=== PATIENT | male | born 1970 ===

== ENCOUNTER 2019-03-04 11:07 | Inpatient (IN) | payer OTHER ==
[~2019-03-04] VITALS: Ht 188 cm; Wt 113.4 kg
[2019-03-04 11:35] LABS: Calcium, Ionized (POC) 1.08 mmol/L (1.10-1.46); Chloride (POC) 99 mmol/L (98-108); Creatinine (POC) 0.7 mg/dL (0.6-1.0); Glucose (ISTAT POC) 298 mg/dL (70-99); Hemoglobin (POC) 17.7 g/dL (12.0-16.0); Potassium (POC) 3.9 mmol/L (3.5-5.5); Sodium (POC) 133 mmol/L (135-148); Total CO2 (POC) 22 mmol/L (21-32)
[2019-03-04 11:47] LABS: Hematocrit 48.9 % (33.0-51.0); Hemoglobin 17.6 g/dL (11.5-16.0); Mean Corpuscular HGB 32.1 pg (26.0-34.0); Mean Corpuscular Volume 89 fL (80-100); Mean Platelet Volume 10.9 fL (9.1-12.4); Platelet Count 196 K/mm3 (150-400); RDW Coefficient Variation 11.9 % (11.7-14.2); RDW Standard Deviation 38.5 fL (35.1-46.3); Red Blood Cell Count 5.48 M/mm3 (3.80-5.20); White Blood Cell Count 17.14 K/mm3 (4.00-11.30)
[2019-03-04 12:04] LABS: International Normalized Ratio 0.97; Prothrombin Time Results 10.3 Sec (9.7-11.5)
[2019-03-04 12:15] LABS: Alanine Aminotransfer (ALT/SGP 65 U/L (12-78); Albumin, Blood 4.2 g/dL (3.4-5.0); Alk Phos 123 U/L (50-136); Anion Gap 8 mmol/L (6-16); Aspartate Aminotrans (AST/SGOT 259 U/L (12-37); Bilirubin, Total 0.9 mg/dL (0.1-1.0); Blood Urea Nitrogen 10 mg/dL (8-24); Bun/Creatinine Ratio 14.1 (12.0-20.0); CO2, Blood 23 mmol/L (21-32); Calcium, Blood 9.2 mg/dL (8.5-10.1); Chloride, Blood 101 mmol/L (98-108); Cholesterol 245 mg/dL (50-200); Creatinine, Blood 0.71 mg/dL (0.40-1.00); Glomerular Filtration Rate >60 (60-); Glucose, Blood 293 mg/dL (70-99); HDL Cholesterol 41 mg/dL (>39); LDL/HDL RATIO 4.3; Low Density Lipoprotein Chol 175 mg/dL (0-110); Potassium, Blood 3.8 mmol/L (3.5-5.5); Sodium, Blood 132 mmol/L (136-145); Total Protein, Blood 8.2 g/dL (6.4-8.2); Triglycerides 147 mg/dL (30-160); Very Low Density Lipoprot Chol 29 mg/dL (6-32)
--- NOTE | 2019-03-04 12:45 | NUR ---
ARRIVAL NOTE: PT ARRIVED FROM THE [facility] POST ANGIOGRAM VIA BED. PT IS A+O X3. PLEASANT AND COOPERATIVE WITH CARE. SPEECH IS CLEAR, ANSWERS QUESTIONS APPROPRIATELY. DENIES ANY PAIN/NAUSEA AT THIS TIME. MOVES SELF IN BED AND EDUCATION HAS BEEN GIVEN ON ACTIVITY RESTRICTIONS R/T TR BAND. LUNGS ARE CLEAR T/O BILATERALLY. 02 SATS >90% ON RA. HR REGULAR, SR 80-90'S RANGE. AGGRASTAT GTT PER ORDERS. TR BAND IN PLACE TO RT RADIAL STABLE (NO OOZING/HEMATOMA). WILL MONITOR PER ORDERS. ABD SOFT/ROUND/NON-TENDER. BT'S HYPOACTIVE X4 QAUDS. PT VOIDS PER URINAL. -FULL CODE -RECOVER TR BAND -POSSIBLE DISCHARGE HOME TOMORROW PER DR DOUGLASS
[2019-03-04] MEDS ORDERED: MOTRIN IB200 MG PO (13:15)
--- NOTE | 2019-03-04 16:56 | NUR ---
echocardiogram complete
--- NOTE | 2019-03-04 17:00 | NUR ---
TR BAND REMAINS STABLE. WILL START TO DEFLATE CUFF. WILL DEFLATE SLOWLY, PT REMAINS ON AGGRASTAT GTT PER ORDERS.
--- NOTE | 2019-03-04 19:00 | NUR ---
SHIFT SUMMARY/REPORTED OFF: REPORTED OFF TO YANELY PANDA WHOM WILL ASSUMING CARE OF THIS PT. PT REMAINS STABLE T/O REMAINDER OF SHIFT. NO CHANGE IN ASSESSMENT FROM PRIOR DOCUMENTED. CONTINUES TO DENY CP/NAUSEA. VS STABLE. TR BAND ALMOST FULLY DEFLATED (APPROX 2ML LEFT OF AIR), SITE REMAINS STABLE (NO OOZING/HEMATOMA). PT WILL PROBABLE DISCHARGE HOME TOMORROW PER DR DOUGLASS.
--- NOTE | 2019-03-04 19:25 | NUR ---
ASSUMED CARE OF PT, BEDSIDE REPORT RECEIVED. PT IS RESTING QUIETLY RECLINING IN BED, DENIES N/V, DENIES CP/PRESSURE, DENIES SOB/DYSPNEA, STATES THAT HE IS FEELING WELL AND LOOKING FORWARD TO DISCHARGE TO HOME IN AM. LUNGS ARE CLEAR THROUGHOUT, SKIN PWD, SATS HIGH 90S ON ROOM AIR, NO INCREASED WORK OF BREATHING IS NOTED, SPEAKING IN FULL SENTANCES. HRR, SINUS ON MONITOR, PRESSURE AND RATE WNL, PULSES FULL X 4 EXTREMITIES, TR BAND NOTED IN PLACE TO RIGHT WRIST, 2 ML AIR REMOVED AT THIS TIME, PT MAINTAINING MOVEMENT RESTRICTIONS/PRECAUTIONS R/T RADIAL ACCESS SITE WELL AT THIS TIME, SITE REMAINS STABLE AT THIS TIME, WILL CONT TO MONITOR AND DEFLATE. BOWEL TONES ACTIVE X 4, ABD DISTENDED BUT SOFT. WILL CONT TO MONITOR.
--- NOTE | 2019-03-04 20:03 | NUR ---
TR BAND DEFLATED FULLY AT THIS TIME, SITE REMAINS STABLE, WILL CONT TO MONITOR AND REMOVE IN 1 HOUR IF SITE REMAINS STABLE.
--- NOTE | 2019-03-04 21:00 | NUR ---
RIGHT RADIAL ACCESS SITE REMAINS STABLE AT THIS TIME, TR BAND REMOVED, SITE CLEANSED WITH CHLORPREP AND CLEAR OCCLUSIVE DRESSING APPLIED, PT TOLERATED WELL, VERBALIZED UNDERSTANDING OF CONTINUED RADIAL ACCESS SITE PRECAUTIONS. WILL CONT TO MONITOR.
--- NOTE | 2019-03-04 22:00 | NUR ---
RIGHT RADIAL ACCESS SITE CONTINUES STABLE AT THIS TIME, WILL CONT TO MONITOR.
--- NOTE | 2019-03-05 06:18 | NUR ---
PT RESTS QUIETLY THROUGHOUT SHIFT, CONTINUES TO DENY CP/PRESSURE, DENIES SOB/DYSPNEA, DENIES NUMBNESS/TINGLING, DENIES N/V, STATES THAT HE FEELS WELL AND IS HOPEFUL FOR DISCHARGE TO HOME TODAY. LUNGS REMAIN CLEAR THROUGHOUT, MAINTAINS SATS MID 90S ON ROOM AIR, NO INCREASED WORK OF BREATHING IS NOTED, RATE TEENS. HRR, SINUS ON MONITOR, OCCASIONAL PVCS ARE NOTED, PRESSURE MAINTAINING, PULSES REMAIN FULL X 4 EXTREMITIES, SKIN PWD. RIGHT RADIAL ACCESS SITE CONTINUES SOFT, WITHOUT EVIDENCE OF BLEEDING. ABD REMAINS SOFT WITH ACTIVE BOWEL TONES. PT VOIDS CLEAR YELLOW URINE WITHOUT DIFFICULTY. NO ACUTE CHANGES THIS SHIFT.
--- NOTE | 2019-03-05 09:02 | NUR ---
CALLED IN RX'S TO [facility] AT [facility] ([phone]).
[2019-03-05] MEDS ORDERED: ASPI81CH PO (09:09)
[2019-03-05] MEDS ORDERED: ATOR40TA PO (09:10)
[2019-03-05] MEDS ORDERED: CLOP75 PO (09:11)
[2019-03-05] MEDS ORDERED: LISI5 PO (09:11)
[2019-03-05] MEDS ORDERED: METO25 PO (09:12)
[2019-03-05] MEDS ORDERED: METO25ER PO (09:18)
[2019-03-05] MEDS ORDERED: NITR.4SL SL (09:20)
--- NOTE | 2019-03-05 10:43 | NUR ---
0740: CARE ASSUMED, ASSESSMENT COMPLETED. VSS, PT DENIES CHEST PAIN/PRESSURE, OR SOB. RIGHT RADIAL ACCESS SITE WITH A SMALL BRUISE PRESENT, NO ACTIVE OOZING OR BLEEDING, NO HEMATOMA NOTED, DRESSING DCI, RADIAL PULSE 2+, WRIST IMMOBILIZER IN PLACE. PT DENIES PAIN OR C/O AT THIS TIME. 0900: BREAKFAST TOLERATED WELL, DR. AWAN AT BEDSIDE. 1035: MEDICATIONS SENT TO PHARMACY, PT KNOWS TO [facility] SPECIALIST AT [facility] IN [place]. IV'S DC'D WITH TIPS INTACT, PRESSURE DRESSINGS APPLIED. VSS. DC INSTRUCTIONS PROVIDED, PT VERBALIZES UNDERSTANDING. RIGHT RADIAL ACCESS SITE WNL, NO CHANGES NOTED, IMMOBILIZER REMAINS IN PLACE. PT DC AT THIS TIME, IS TO MEET HIS SON WHO WILL DRIVE HIM HOME TO [place]. PT AWARE OF BLEEDING RISKS OF RADIAL ACCESS SITE, INSTRUCTED ON CARE IN CASE OF BLEED. PT DRESSED SELF, GAIT STEADY UPON DISCHARGE, REFUSES NEED FOR WC TO CAR.
== END 2019-03-05 10:35 | disposition home or self-care (01) | DRG 247 ==
LOC: ER 11:07 → ICUW 11:23 → EDSEX 11:23 → ICUE 11:23
PROVIDERS: Emergency Medicine; ADMIT Internal Medicine Interventional Cardiology
PROC: 027034Z Dilation of Coronary Artery, One Artery with Drug-eluting Intraluminal Device, Percutaneous Approach (ICD-10-PCS; principal; 2019-03-04)
PROC: B2111ZZ Fluoroscopy of Multiple Coronary Arteries using Low Osmolar Contrast (ICD-10-PCS; 2019-03-04)
DX: I21.09 ST elevation (STEMI) myocardial infarction involving other coronary artery of anterior wall (principal); F17.200 Nicotine dependence, unspecified, uncomplicated
CPT/HCPCS: 36415; 80047; 80053; 80061; 82565; 83735; 84484; 85014; 85027; 85347; 85610; 85730; 86850; 86900; 86901; 93005; 93010; 93306; 93454; 99152; 99153; 99285-25; C1725; C1769; C1874; C1887; C1894; C9606; J0282; J1644; J2250; J3010; J3246; J7030; Q9967